=== PATIENT | female | born 1935 | race Caucasian/White ===

== ENCOUNTER 2017-07-13 22:20 | Inpatient (IN) | payer MEDICARE, OTHER ==
[~2017-07-13] VITALS: Ht 162.6 cm; Wt 64.3 kg
[2017-07-13] MEDS ORDERED: SODIUM CHLOR 0.9% 1000 ML INJ 1,000 ML IV ONE (22:30)
[2017-07-13 22:37] VITALS: BP 140/72; PULSE 79; RESP 21; TEMP 99.4; O2SAT 96
--- NOTE | 2017-07-13 22:39 | PD ---
HPI Chief Complaint: altered mental status Time Seen by Provider: 22:25 Travel History International Travel<30 days: No Contact w/Intl Traveler<30days: No Traveled to known affect area: No History of Present Illness HPI The patient is a 82-year-old female who presents to the emergency department via EMS from a [facility] for increasing altered mental status and lethargy. The patient apparently was diagnosed with influenza earlier in the week and was placed on Tamiflu. The patient then had an x-ray which revealed pneumonia. The patient was noted to have a change in mental status with increasing lethargy and generalized weakness. The patient was also noted to have poor nutritional intake. Upon arrival the patient will respond to her name but does not answer questions, she is a poor historian. No further information is obtainable from the patient. According to EMS the family was in route and the patient was a DNR. EMS states the patient's oxygen saturation on room air was 90%. The patient came up to 95% on 4 L via nasal cannula. PFS Past Medical History Narrative Medical Alzheimer's disease, osteoporosis, retinal detachment, hypertension, depression , hyperlipidemia, GERD Past Surgical History Surgical History: Unable to Obtain Social History Tobacco Use: No Allergies-Medications (Allergen,Severity, Reaction): Coded Allergies: bee venom protein (honey bee) (Verified Allergy, Unknown, 07/13/17) codeine (Verified Allergy, Unknown, 07/13/17) Review of Systems ROS Limitations: Clinical Condition, Altered Mental Status Except as stated in HPI: all other systems reviewed are Neg Neurologic: Positive: Change in Mentation Physical Exam Narrative GENERAL: Awake, eyes alert, somewhat lethargic 82-year-old female who responds to her name but does not answer questions. SKIN: Focused skin assessment warm/dry. HEAD: Atraumatic. Normocephalic. EYES: Pupils equal and round. 3 mm bilateral and reactive. ENT: No nasal bleeding or discharge. Dry mucous membranes. NECK: Trachea midline. No JVD. CARDIOVASCULAR: Regular rate and rhythm. No murmur appreciated. Heart rate in the 80s. RESPIRATORY: Tachypnea, diminished breath sounds in the right base. GASTROINTESTINAL: Abdomen soft, non-tender, nondistended. Well-healed scar right lower quadrant. MUSCULOSKELETAL: No obvious deformities. No clubbing. No cyanosis. No edema. NEUROLOGICAL: Awake, alert, lethargic. Moves extremities. Back: Stage II one to 2 sacral decubitus ulcers noted. PSYCHIATRIC: Appears confused. Data Data Last Documented VS Vital Signs Date Time Temp Pulse Resp B/P (MAP) Pulse Ox O2 Delivery O2 Flow Rate FiO2 07/13/17 22:41 99.4 21 96 Nasal Cannula 4.00 07/13/17 22:37 79 140/72 (94) Orders Orders Electrocardiogram (07/13/17 22:27) Complete Blood Count With Diff (07/13/17 22:27) Comprehensive Metabolic Panel (07/13/17 22:27) Creatine Kinase (Cpk) (07/13/17 22:27) Prothrombin Time / Inr (Pt) (07/13/17 22:27) Act Partial Throm Time (Ptt) (07/13/17 22:27) Troponin I (07/13/17 22:27) Thyroid Stimulating Hormone (07/13/17 22:27) Urinalysis - C+S If Indicated (07/13/17 22:27) Lactic Acid Sepsis Protocol (07/13/17 22:27) Blood Culture (07/13/17 22:27) Chest, Single Ap (07/13/17 22:27) Blood Glucose (07/13/17 22:27) Ecg Monitoring (07/13/17 22:27) Iv Access Insert/Monitor (07/13/17 22:27) Oximetry (07/13/17 22:27) Sodium Chlor 0.9% 1000 Ml Inj (Ns 1000 M (07/13/17 22:30) Cefepime Inj (Maxipime Inj) (07/13/17 23:15) Azithromycin Inj (Zithromax Inj) (07/13/17 23:15) Potassium, Serum (K) (07/14/17 02:59) Insulin Human Regular Inj (Novolin R Inj (07/14/17 00:15) Dextrose 50% In Juan José (Vial) Inj (D50w (Vi (07/14/17 00:00) Sodium Bicarbonate 8.4% Inj (Sodium Bica (07/14/17 00:00) Sodium Chlor 0.9% 1000 Ml Inj (Ns 1000 M (07/14/17 00:00) Admit Order (Ed Use Only) (07/14/17 00:20) Labs Laboratory Tests Test 07/13/17 22:25 07/13/17 22:30 White Blood Count 26.3 TH/MM3 Red Blood Count 4.48 MIL/MM3 Hemoglobin 13.7 GM/DL Hematocrit 39.5 % Mean Corpuscular Volume 88.1 FL Mean Corpuscular Hemoglobin 30.5 PG Mean Corpuscular Hemoglobin Concent 34.6 % Red Cell Distribution Width 15.0 % Platelet Count 445 TH/MM3 Mean Platelet Volume 9.0 FL Neutrophils (%) (Auto) 91.9 % Lymphocytes (%) (Auto) 4.5 % Monocytes (%) (Auto) 3.2 % Eosinophils (%) (Auto) 0.0 % Basophils (%) (Auto) 0.4 % Neutrophils # (Auto) 24.1 TH/MM3 Lymphocytes # (Auto) 1.2 TH/MM3 Monocytes # (Auto) 0.8 TH/MM3 Eosinophils # (Auto) 0.0 TH/MM3 Basophils # (Auto) 0.1 TH/MM3 CBC Comment AUTO DIFF Differential Total Cells Counted 100 Neutrophils % (Manual) 87 % Band Neutrophils % 5 % Lymphocytes % 3 % Monocytes % 4 % Neutrophils # (Manual) 24.5 TH/MM3 Metamyelocytes 1 % Differential Comment FINAL DIFF MANUAL Toxic Granulation 1+ Toxic Vacuolation PRESENT Platelet Estimate HIGH Platelet Morphology Comment NORMAL Austin Cells 1+ Prothrombin Time 12.0 SEC Prothromb Time International Ratio 1.2 RATIO Activated Partial Thromboplast Time 28.6 SEC Blood Urea Nitrogen 202 MG/DL Creatinine 15.08 MG/DL Random Glucose 167 MG/DL Total Protein 8.7 GM/DL Albumin 2.6 GM/DL Calcium Level 10.1 MG/DL Alkaline Phosphatase 105 U/L Aspartate Amino Transf (AST/SGOT) 22 U/L Alanine Aminotransferase (ALT/SGPT) 12 U/L Total Bilirubin 1.7 MG/DL Sodium Level 134 MEQ/L Potassium Level 6.6 MEQ/L Chloride Level 93 MEQ/L Carbon Dioxide Level 11.5 MEQ/L Anion Gap 30 MEQ/L Estimat Glomerular Filtration Rate 2 ML/MIN Total Creatine Kinase 48 U/L Troponin I LESS THAN 0.02 NG/ML Thyroid Stimulating Hormone 3rd Gen 0.145 uIU/ML Lactic Acid Level 1.0 mmol/L MDM Medical Decision Making Medical Screen Exam Complete: Yes Emergency Medical Condition: Yes Medical Record Reviewed: Yes Interpretation(s) EKG reveals normal sinus rhythm with a rate of 78. Inverted T-wave noted in lead 3. Last Impressions Chest X-Ray 07/13/172226 Signed Impressions: Service Date/Time: Thursday, July 13, 2017 22:41 - CONCLUSION: 1. Mild basilar airspace disease. Differential diagnosis includes mild bronchopneumonia in patient with fever. Walter Yanez MD Laboratory Tests Test 07/13/17 22:25 07/13/17 22:30 White Blood Count 26.3 TH/MM3 Red Blood Count 4.48 MIL/MM3 Hemoglobin 13.7 GM/DL Hematocrit 39.5 % Mean Corpuscular Volume 88.1 FL Mean Corpuscular Hemoglobin 30.5 PG Mean Corpuscular Hemoglobin Concent 34.6 % Red Cell Distribution Width 15.0 % Platelet Count 445 TH/MM3 Mean Platelet Volume 9.0 FL Neutrophils (%) (Auto) 91.9 % Lymphocytes (%) (Auto) 4.5 % Monocytes (%) (Auto) 3.2 % Eosinophils (%) (Auto) 0.0 % Basophils (%) (Auto) 0.4 % Neutrophils # (Auto) 24.1 TH/MM3 Lymphocytes # (Auto) 1.2 TH/MM3 Monocytes # (Auto) 0.8 TH/MM3 Eosinophils # (Auto) 0.0 TH/MM3 Basophils # (Auto) 0.1 TH/MM3 CBC Comment AUTO DIFF Differential Total Cells Counted 100 Neutrophils % (Manual) 87 % Band Neutrophils % 5 % Lymphocytes % 3 % Monocytes % 4 % Neutrophils # (Manual) 24.5 TH/MM3 Metamyelocytes 1 % Differential Comment FINAL DIFF MANUAL Toxic Granulation 1+ Toxic Vacuolation PRESENT Platelet Estimate HIGH Platelet Morphology Comment NORMAL Austin Cells 1+ Prothrombin Time 12.0 SEC Prothromb Time International Ratio 1.2 RATIO Activated Partial Thromboplast Time 28.6 SEC Blood Urea Nitrogen 202 MG/DL Creatinine 15.08 MG/DL Random Glucose 167 MG/DL Total Protein 8.7 GM/DL Albumin 2.6 GM/DL Calcium Level 10.1 MG/DL Alkaline Phosphatase 105 U/L Aspartate Amino Transf (AST/SGOT) 22 U/L Alanine Aminotransferase (ALT/SGPT) 12 U/L Total Bilirubin 1.7 MG/DL Sodium Level 134 MEQ/L Potassium Level 6.6 MEQ/L Chloride Level 93 MEQ/L Carbon Dioxide Level 11.5 MEQ/L Anion Gap 30 MEQ/L Estimat Glomerular Filtration Rate 2 ML/MIN Total Creatine Kinase 48 U/L Troponin I LESS THAN 0.02 NG/ML Thyroid Stimulating Hormone 3rd Gen 0.145 uIU/ML Lactic Acid Level 1.0 mmol/L Differential Diagnosis Differential diagnosis includes influenza, pneumonia, sepsis, and the life care , dehydration, acute renal failure, multisystem organ dysfunction. Narrative Course IV was established, labs are drawn and sent, and the patient was placed on cardiac telemetry monitoring and continuous pulse oximetry monitoring. Chest x- ray was obtained. UA was sent to lab. The patient was administered 1 L of IV fluids. Labs from the [facility] reveals a paced and tested positive for influenza A Sodium 139, potassium 4.1, chloride 101, CO2 22, glucose 60, BUN 81, crit at 2.42, calcium 8.82, magnesium 2.5 W CBC 17.5, hemoglobin 11.6, hematocrit 35.7, platelet count 355 Chest x-ray reveals bronchopneumonia. The patient was covered for healthcare acquired pneumonia with cefepime and Zithromax. The patient was also noted to be in acute renal failure with a credit greater than 15 and a potassium 6.6. The patient was given insulin, D50, IV fluids, and a call was placed the launderer hand. I discussed patient with Dr. Sahu who agrees with admission. I also had a discussion with the daughter stating the patient was critically ill, she does note the patient is a DNR, does not want intubation or compressions, she is comfortable with medication administration for the pneumonia. I did advise the family to call family members as the patient is critically ill. Critical Care Narrative Aggregate critical care time was 40 minutes. Time to perform other separately billable procedures was not included in the critical care time. My time did not include minutes spent treating any other patients simultaneously or on activities that did not directly contribute to the patient's treatment. The services I provided to this patient were to treat and/or prevent clinically significant deterioration that could result in: Arrhythmia, nontoxic, hypoxia, aspiration, . I provided critical care services requiring my management, as noted below: Chart data review, documentation time, medication orders and management, vital sign assessments/reviewing monitor data, ordering and reviewing lab tests, ordering and interpreting/reviewing x-rays and diagnostic studies, care of the patient and discussion of the patient with the admitting physicians. Sepsis Criteria SIRS Criteria (2 or more): RR > 20 or PaCO2 < 32, WBC > 39413, < 4000 or > 10 % bands Sepsis Criteria (SIRS+source): Infect source susp/known Severe Sepsis (+one): Acute Oliguria/Renal Failure Criteria Outcome: Meets severe sepsis criteria Physician Communication Physician Communication The on-call medical service was paged for admission. I discussed the patient with Dr. Sahu who agrees with admission. Diagnosis Primary Impression: Sepsis Qualified Codes: A41.9 - Sepsis, unspecified organism Additional Impressions: Influenza A Pneumonia Qualified Codes: J18.9 - Pneumonia, unspecified organism Acute renal failure Qualified Codes: N17.9 - Acute kidney failure, unspecified Hyperkalemia Admitting Information Admitting Physician Requests: Admit Condition: Critical Momo Cheek MD Jul 13, 2017 22:39
[2017-07-13 22:41] VITALS: RESP 21; TEMP 99.4; O2SAT 96
[2017-07-13 22:45] LABS: AUTOMATED NEUTROPHIL # 24.1 TH/MM3 (1.8-7.7); BASOPHIL # 0.1 TH/MM3 (0-0.2); BASOPHIL % 0.4 % (0.0-2.0); HEMATOCRIT 39.5 % (35.0-46.0); HEMOGLOBIN 13.7 GM/DL (11.6-15.3); LYMPH % 4.5 % (9.0-44.0); LYMPHOCYTE # 1.2 TH/MM3 (1.0-4.8); MEAN CELL VOLUME 88.1 FL (80.0-100.0); MEAN CORPUSCULAR HEMOGLOBIN 30.5 PG (27.0-34.0); MEAN CORPUSCULAR HGB CONC 34.6 % (32.0-36.0); MONO % 3.2 % (0.0-8.0); MONOCYTE # 0.8 TH/MM3 (0-0.9); NEUT % 91.9 % (16.0-70.0); PLATELET COUNT 445 TH/MM3 (150-450); RED BLOOD COUNT 4.48 MIL/MM3 (4.00-5.30); WHITE BLOOD COUNT 26.3 TH/MM3 (4.0-11.0)
[2017-07-13 22:55] LABS: INTERNATIONAL NORMALIZED RATIO 1.2 RATIO
--- NOTE | 2017-07-13 23:02 | RADRPT ---
EXAM DATE/TIME: 07/13/2017 22:41 [facility] COMPARISON: No previous studies available for comparison. INDICATIONS : Fever. Confusion. MEDICAL HISTORY : Unobtainable. SURGICAL HISTORY : Unobtainable. ENCOUNTER: Initial ACUITY: 1 week PAIN SCORE: Non-responsive. LOCATION: Bilateral chest FINDINGS: A single view of the chest demonstrates mild basilar airspace disease in the lungs. No effusion. No p neumothorax. Tortuous aorta. Mild scoliosis. Previous left shoulder joint replacement. CONCLUSION: 1. Mild basilar airspace disease. Differential diagnosis includes mild bronchopneumonia in patient wi th fever. Walter Yanez MD on July 13, 2017 at 22:57 Board Certified Radiologist. This report was verified electronically.
[2017-07-13] MEDS ORDERED: CEFEPIME INJ 2,000 MG in SODIUM CHLORIDE 0.9% INJ 100 ML IV ONE (23:15)
[2017-07-13] MEDS ORDERED: AZITHROMYCIN INJ 500 MG in SODIUM CHLOR 0.9% 250 ML INJ 250 ML IV ONE (23:15)
[2017-07-13 23:20] LABS: BANDS 5 % (0-6); LYMPHOCYTES 3 % (9-44); METAMYELOCYTES 1 % (0-1); MONOCYTES 4 % (0-8); NEUTROPHIL # MANUAL DIFF 24.5 TH/MM3 (1.8-7.7); POLYS (SEG NEUTROPHILS) 87 % (16-70)
[2017-07-13 23:21] LABS: TOXIC GRANULATION 1+ (NORMAL); TOXIC VACUOLATION PRESENT (NONE SEEN)
[2017-07-13 23:22] LABS: BURR CELLS 1+ (NORMAL)
[2017-07-13 23:49] LABS: ALBUMIN 2.6 GM/DL (3.4-5.0); ALKALINE PHOSPHATASE 105 U/L (45-117); ALT (GPT) 12 U/L (10-53); AST (GOT) 22 U/L (15-37); BICARBONATE 11.5 MEQ/L (21.0-32.0); BLOOD UREA NITROGEN 202 MG/DL (7-18); CALCIUM 10.1 MG/DL (8.5-10.1); CHLORIDE 93 MEQ/L (98-107); GLOMERULAR FILTRATION RATE 2 ML/MIN (>89); GLUCOSE,RANDOM 167 MG/DL (74-106); SODIUM (NA) 134 MEQ/L (136-145); TOTAL BILIRUBIN ADULT 1.7 MG/DL (0.2-1.0); TOTAL PROTEIN 8.7 GM/DL (6.4-8.2); TROPONIN I LESS THAN 0.02 NG/ML (0.02-0.05)
[2017-07-13 23:58] LABS: CREATININE 15.08 MG/DL (0.50-1.00)
[2017-07-14] VITALS (20 sets, daily range): BP systolic 124; BP diastolic 56; PULSE 93–127; RESP 24; TEMP 98.2; O2SAT 82–98
[2017-07-14] MEDS ORDERED: DEXTROSE 50% IN WATER 50 ML VIAL(D50) IV PUSH ONE
[2017-07-14] MEDS ORDERED: SODIUM BICARBONATE 8.4% SOLN 50 MEQ/50 ML VIAL SLOW IVP ONE
[2017-07-14] MEDS ORDERED: INSULIN HUMAN REGULAR 1,000 UNITS/10 ML VIAL IV PUSH ONE (00:15)
[2017-07-14] MEDS ORDERED: SODIUM CHLOR 0.9% 1000 ML INJ 100 ML IV ONE (00:27)
[2017-07-14] MEDS ORDERED: SODIUM CHLOR 0.9% 1000 ML INJ 1,000 ML IV ONE ×3 (00:27)
[2017-07-14] MEDS ORDERED: CHLORHEXIDINE GLUCONATE 2 % 1 PACK (2 CLOTHS) TOP PRN (00:30)
[2017-07-14] MEDS ORDERED: ONDANSETRON HCL 4 MG/2 ML VIAL IV PUSH PRN (00:30)
[2017-07-14] MEDS ORDERED: SODIUM BICARBONATE 8.4% SOLN 50 MEQ/50 ML VIAL IV PUSH ONE (00:30)
[2017-07-14] MEDS ORDERED: SENNOSIDES 8.6 MG TAB PO PRN (00:30)
[2017-07-14] MEDS ORDERED: ACETAMINOPHEN 325 MG TAB PO PRN (00:30)
[2017-07-14] MEDS ORDERED: MISCELLANEOUS NURSING INFORMATION XX SCH (00:30)
[2017-07-14] MEDS ORDERED: LACTULOSE SYRUP 20 GM/30 ML CUP PO PRN (00:30)
[2017-07-14] MEDS ORDERED: RESP: ALBUTEROL 2.5 MG/IPRATROPIUM 0.5 MG NEB (PRN) INH (00:30)
[2017-07-14] MEDS ORDERED: MAGNESIUM HYDROXIDE SUSP 30 ML CUP PO PRN (00:30)
[2017-07-14] MEDS ORDERED: BISACODYL 10 MG SUPP RECTAL PRN (00:30)
[2017-07-14] MEDS ORDERED: SODIUM CHLORIDE 0.9% FLUSH 10 ML FLUSH IV FLUSH PRN ×2 (00:30)
[2017-07-14] MEDS: CEFEPIME INJ 2,000 MG in SODIUM CHLORIDE 0.9% INJ 100 ML IV SCH ×2 (01:00→11:16)
[2017-07-14] MEDS ORDERED: METO25TA3 PO (01:06)
[2017-07-14] MEDS ORDERED: ARIC23TA PO (01:06)
[2017-07-14] MEDS ORDERED: MIRA25TA PO (01:06)
[2017-07-14] MEDS ORDERED: LOSA100T PO (01:06)
[2017-07-14] MEDS ORDERED: CYMB60CA PO (01:06)
[2017-07-14] MEDS ORDERED: NAME10TA PO (01:06)
[2017-07-14] MEDS ORDERED: MELA5 PO (01:06)
[2017-07-14] MEDS ORDERED: GLUC100013 (01:06)
[2017-07-14] MEDS ORDERED: PANT40TA3 PO (01:06)
[2017-07-14] MEDS ORDERED: CHOL1CAP8 PO (01:06)
[2017-07-14] MEDS ORDERED: REME15TA PO (01:06)
[2017-07-14] MEDS ORDERED: VITA100T65 PO (01:06)
[2017-07-14] MEDS ORDERED: GEMF600T PO (01:06)
[2017-07-14] MEDS ORDERED: RIVA3CAP (01:06)
[2017-07-14] MEDS ORDERED: ASPI-516 CHEW (01:06)
[2017-07-14] MEDS ORDERED: NIAC500T5 PO (01:06)
[2017-07-14] MEDS: RESP: ALBUTEROL 2.5 MG/IPRATROPIUM 0.5 MG NEB (SCH) INH ×5 (01:27→19:52)
[2017-07-14] MEDS: SODIUM BICARBONATE 8.4% INJ 150 MEQ in WATER STERILE FOR INJ 850 ML IV SCH ×4 (02:22→20:36)
[2017-07-14] MEDS: LINEZOLID 600 MG PREMIX 300 ML IV SCH ×2 (03:09→16:30)
[2017-07-14] MEDS: HEPARIN SODIUM - SQ 10,000 UNITS/ML VIAL SQ SCH ×2 (03:18→16:30)
[2017-07-14] MEDS: CHLORHEXIDINE GLUCONATE 2 % 1 PACK (2 CLOTHS) TOP SCH (03:18)
--- NOTE | 2017-07-14 03:33 | HHI.HP ---
HPI Service Critical Care Medicine Primary Care Physician Shimon Lopes MD Admission Diagnosis severe sepsis, acute renal failure, pneumonia, influenza a, hyperkal Diagnosis: Travel History International Travel<30 Days: No Contact w/Intl Traveler <30 Da: No Traveled to Known Affected Are: No History of Present Illness 82-year-old pleasantly demented female presents to the emergency department from a [facility] for increasing altered mental status and lethargy. The patient apparently was diagnosed with influenza earlier in the week and was placed on Tamiflu. She had an x-ray which revealed pneumonia. The patient was noted to have a change in mental status with increasing lethargy and generalized weakness. She was also noted to have poor nutritional intake. During my assessment the patient is extremely lethargic, only arousable and most of the history is obtained from the chart review and the patient's family. Review of Systems ROS Unobtainable, patient is lethargic with baseline dementia Past Family Social History Allergies: Coded Allergies: bee venom protein (honey bee) (Verified Allergy, Unknown, 07/13/17) codeine (Verified Allergy, Unknown, 07/13/17) Past Medical History Alzheimer's disease, Osteoporosis Hypertension Depression Dyslipidemia GERD Retinal detachment Past Surgical History Unobtainable Reported Medications Reported Meds & Active Scripts Active Reported Rivastigmine 3 Mg Cap 3 Mg BIDPC Pantoprazole (Pantoprazole Sodium) 40 Mg Tab 40 Mg PO DAILY Namenda (Memantine) 10 Mg Tab 10 Mg PO BID Metoprolol Tartrate 25 Mg Tab 25 Mg PO BID Gemfibrozil 600 Mg Tab 600 Mg PO BIDAC Take 30 minutes prior to breakfast and dinner. Vitamin E 100 Unit Tab 100 Units PO DAILY Vitamin D3 (Cholecalciferol) 400 Unit Cap 400 Units PO DAILY Remeron (Mirtazapine) 15 Mg Tab 15 Mg PO HS Niacin 500 Mg Tab 500 Mg PO DAILY Myrbetriq (Mirabegron) 25 Mg Tab 25 Mg PO DAILY Melatonin 5 Mg Tab 5 Mg PO HS Losartan (Losartan Potassium) 100 Mg Tab 100 Mg PO DAILY Glucosamine (Glucosamine Sulfate) 1,000 Mg Cap 1,[address] (Duloxetine HCl) 60 Mg Capdr 60 Mg PO DAILY Aspirin 81 Mg Chew 81 Mg CHEW DAILY Aricept (Donepezil) 23 Mg Tab 10 Mg PO HS Do not split, crushed or chewed. Active Ordered Medications Current Medications Medications (Trade) Dose Ordered Sig/Beverly Route PRN Reason Start Time Stop Time Status Last Admin Dose Admin Sodium Bicarbonate 150 meq/Sterile Water 1,000 ml @ 150 mls/hr Q6H40M IV 07/14/17 00:30 07/14/17 02:22 Sodium Chloride (NS Flush) 2 ml UNSCH PRN IV FLUSH FLUSH AFTER USING IV ACCESS 07/14/17 00:30 Acetaminophen (Tylenol) 650 mg Q6H PRN PO PAIN 1-5 AND/OR FEVER >101F 07/14/17 00:30 Morphine Sulfate (Morphine Inj) 2 mg Q2H PRN IV PUSH PAIN SCLAE 6-1; AIR HUNGER 07/14/17 01:15 Famotidine (Pepcid Inj) 20 mg Q12HR IV PUSH 07/14/17 09:00 Ondansetron HCl (Zofran Inj) 4 mg Q6H PRN IV PUSH NAUSEA OR VOMITING 07/14/17 00:30 Albuterol/ Ipratropium (Duoneb Neb) 1 ampule Q6HR NEB INH 07/14/17 00:30 07/14/17 03:11 Albuterol/ Ipratropium (Duoneb Neb) 1 ampule Q2HR NEB PRN INH WHEEZING 07/14/17 00:30 Heparin Sodium (Porcine) (Heparin Inj) 5,000 units Q12H SQ 07/14/17 02:00 07/14/17 03:18 Miscellaneous Information 1 Q361D XX 07/14/17 00:30 Chlorhexidine Gluconate (Chlorhexidine 2% Cloth) 3 pack Taper DAILY@04 TOP 07/14/17 04:00 07/10/18 03:59 07/14/17 03:18 Chlorhexidine Gluconate (Chlorhexidine 2% Cloth) 3 pack UNSCH PRN TOP HYGIENIC CARE 07/14/17 00:30 Senna/Docusate Sodium (Anitha-Colace) 1 tab BID PO 07/14/17 09:00 Magnesium Hydroxide (Milk Of Magnesia Liq) 30 ml Q12H PRN PO Mild constipation 07/14/17 00:30 Sennosides (Senokot) 17.2 mg Q12H PRN PO Moderate constipation 07/14/17 00:30 Bisacodyl (Dulcolax Supp) 10 mg DAILY PRN RECTAL SEVERE CONSITIPATION 07/14/17 00:30 Lactulose (Lactulose Liq) 30 ml DAILY PRN PO SEVERE CONSITIPATION 07/14/17 00:30 Sodium Chloride (NS Flush) 2 ml BID IV FLUSH 07/14/17 09:00 Cefepime HCl 2000 mg/Sodium Chloride 100 ml @ 200 mls/hr Q8H IV 07/14/17 01:00 Azithromycin 500 mg/Sodium Chloride 250 ml @ 250 mls/hr Q24H IV 07/14/17 23:00 Linezolid 300 ml @ 300 mls/hr Q12H IV 07/14/17 02:00 07/14/17 03:09 Oseltamivir Phosphate (Tamiflu) 75 mg BID PO 07/14/17 09:00 07/19/17 08:59 Family History Unobtainable Social History Negative for tobacco, alcohol, or illicit drug abuse Physical Exam Vital Signs Vital Signs Date Time Temp Pulse Resp B/P (MAP) Pulse Ox O2 Delivery O2 Flow Rate FiO2 07/14/17 03:11 98 Nasal Cannula 2.00 07/14/17 01:33 96 Nasal Cannula 4.00 07/13/17 22:41 99.4 21 96 Nasal Cannula 4.00 07/13/17 22:37 99.4 79 21 140/72 (94) 96 Physical Exam GENERAL: Awake, extremely lethargic 82-year-old female who responds to her name but does not answer questions. SKIN: Focused skin assessment warm/dry. HEAD: Atraumatic. Normocephalic. EYES: Pupils equal and round. 3 mm bilateral and reactive. ENT: No nasal bleeding or discharge. Dry mucous membranes. NECK: Trachea midline. No JVD. CARDIOVASCULAR: Regular rate and rhythm. No murmur appreciated. Heart rate in the 80s. RESPIRATORY: Tachypnea, diminished breath sounds in the right base. GASTROINTESTINAL: Abdomen soft, non-tender, nondistended. Well-healed scar right lower quadrant. MUSCULOSKELETAL: No obvious deformities. No clubbing. No cyanosis. No edema. NEUROLOGICAL: Awake, alert, lethargic. Moves extremities. Back: Stage II one to 2 sacral decubitus ulcers noted. Laboratory Laboratory Tests Test 07/13/17 22:25 07/13/17 22:30 07/14/17 02:30 White Blood Count 26.3 Red Blood Count 4.48 Hemoglobin 13.7 Hematocrit 39.5 Mean Corpuscular Volume 88.1 Mean Corpuscular Hemoglobin 30.5 Mean Corpuscular Hemoglobin Concent 34.6 Red Cell Distribution Width 15.0 Platelet Count 445 Mean Platelet Volume 9.0 Neutrophils (%) (Auto) 91.9 Lymphocytes (%) (Auto) 4.5 Monocytes (%) (Auto) 3.2 Eosinophils (%) (Auto) 0.0 Basophils (%) (Auto) 0.4 Neutrophils # (Auto) 24.1 Lymphocytes # (Auto) 1.2 Monocytes # (Auto) 0.8 Eosinophils # (Auto) 0.0 Basophils # (Auto) 0.1 CBC Comment AUTO DIFF Differential Total Cells Counted 100 Neutrophils % (Manual) 87 Band Neutrophils % 5 Lymphocytes % 3 Monocytes % 4 Neutrophils # (Manual) 24.5 Metamyelocytes 1 Differential Comment FINAL DIFF MANUAL Toxic Granulation 1+ Toxic Vacuolation PRESENT Platelet Estimate HIGH Platelet Morphology Comment NORMAL Dandy Cells 1+ Prothrombin Time 12.0 Prothromb Time International Ratio 1.2 Activated Partial Thromboplast Time 28.6 Blood Urea Nitrogen 202 Creatinine 15.08 Random Glucose 167 Total Protein 8.7 Albumin 2.6 Calcium Level 10.1 Alkaline Phosphatase 105 Aspartate Amino Transf (AST/SGOT) 22 Alanine Aminotransferase (ALT/SGPT) 12 Total Bilirubin 1.7 Sodium Level 134 Potassium Level 6.6 Chloride Level 93 Carbon Dioxide Level 11.5 Anion Gap 30 Estimat Glomerular Filtration Rate 2 Total Creatine Kinase 48 Troponin I LESS THAN 0.02 Thyroid Stimulating Hormone 3rd Gen 0.145 Lactic Acid Level 1.0 Date/Time Source Procedure Growth Status 07/13/17 22:30 Blood Peripheral Aerobic Blood Culture Pending Received 07/13/17 22:30 Blood Peripheral Anaerobic Blood Culture Pending Received Result Diagram: 07/13/17222407/13/172224 Imaging Last 24 hours Impressions Chest X-Ray 07/13/172226 Signed Impressions: Service Date/Time: Thursday, July 13, 2017 22:41 - CONCLUSION: 1. Mild basilar airspace disease. Differential diagnosis includes mild bronchopneumonia in patient with fever. Walter Yanez MD Septic Shock Reassessment Septic shock perfusion: reassessment completed Caprini VTE Risk Assessment Caprini VTE Risk Assessment: Mod/High Risk (score >= 2) Caprini Risk Assessment Model Point Value = 1 Point Value = 2 Point Value = 3 Point Value = 5 Age 41-60 Minor surgery BMI > 25 kg/m2 Swollen legs Varicose veins or History of unexplained or recurrent spontaneous Oral contraceptives or hormone replacement Sepsis (< 1 month) Serious lung disease, including pneumonia (< 1 month) Abnormal pulmonary function Acute myocardial infarction Congestive heart failure (< 1 month) History of inflammatory bowel disease Medical patient at bed rest Age 61-74 Arthroscopic surgery Major open surgery (> 45 min) Laparoscopic surgery (> 45 min) Malignancy Confined to bed (> 72 hours) Immobilizing plaster cast Central venous access Age >= 75 History of VTE Family history of VTE Factor V Leiden Prothrombin [id number] Lupus anticoagulant Anticardiolipin antibodies Elevated serum homocysteine Heparin-induced thrombocytopenia Other congenital or acquired thrombophilia Stroke (< 1 month) Elective arthroplasty Hip, pelvis, or leg fracture Acute spinal cord injury (< 1 month) Prophylaxis Regimen Total Risk Factor Score Risk Level Prophylaxis Regimen 0-1 Low Early ambulation 2 Moderate Order ONE of the following: *Sequential Compression Device (SCD) *Heparin 5000 units SQ BID 3-4 Higher Order ONE of the following medications: *Heparin 5000 units SQ TID *Enoxaparin/Lovenox 40 mg SQ daily (WT < 150 kg, CrCl > 30 mL/min) *Enoxaparin/Lovenox 30 mg SQ daily (WT < 150 kg, CrCl > 10-29 mL/min) *Enoxaparin/Lovenox 30 mg SQ BID (WT < 150 kg, CrCl > 30 mL/min) AND/OR *Sequential Compression Device (SCD) 5 or more Highest Order ONE of the following medications: *Heparin 5000 units SQ TID (Preferred with Epidurals) *Enoxaparin/Lovenox 40 mg SQ daily (WT < 150 kg, CrCl > 30 mL/min) *Enoxaparin/Lovenox 30 mg SQ daily (WT < 150 kg, CrCl > 10-29 mL/min) *Enoxaparin/Lovenox 30 mg SQ BID (WT < 150 kg, CrCl > 30 mL/min) AND *Sequential Compression Device (SCD) Assessment and Plan Assessment and Plan Sepsis - Broad-spectrum antibiotics - Panculture - De-escalate antibiotics per sensitivity Pneumonia - Hospital-acquired/patient is a halfway resident - Diagnosed recently with flu - Continue Tamiflu - Cefepime, azithromycin, linezolid (severe acute kidney injury ) - DuoNeb scheduled and when necessary - O2 nasal cannula to keep sats above 92 Acute kidney injury with hyperkalemia - Severe dehydration - Discussed with patient's family, she would never want hemodialysis neither they do - Sodium bicarbonate drip - Monitor labs - Aggressive IV fluid hydration - Strict I's and O's Alzheimer's disease - Resume Aricept Namenda when okay to swallow Osteoporosis - Hold vitamin D and calcium until neurologically improved and safe to by mouth Hypertension - Hold metoprolol in the picture of sepsis Depression - Resume Cymbalta when by mouth Dyslipidemia - Resume atorvastatin GERD - IV Pepcid DVT GI prophylaxis - Teds SCDs - Subcutaneous heparin - Pepcid Critical Care: The total critical care time was 35 minutes. Time to perform other separately billable procedures was not included in the critical care time. Guillermo Sahu MD Jul 14, 2017 3:33 am
[2017-07-14 04:10] LABS: AUTOMATED NEUTROPHIL # 18.1 TH/MM3 (1.8-7.7); BASOPHIL % 0.2 % (0.0-2.0); HEMATOCRIT 32.7 % (35.0-46.0); HEMOGLOBIN 10.9 GM/DL (11.6-15.3); LYMPH % 6.9 % (9.0-44.0); LYMPHOCYTE # 1.4 TH/MM3 (1.0-4.8); MEAN CELL VOLUME 88.9 FL (80.0-100.0); MEAN CORPUSCULAR HEMOGLOBIN 29.7 PG (27.0-34.0); MEAN CORPUSCULAR HGB CONC 33.4 % (32.0-36.0); MEAN PLATELET VOLUME 8.3 FL (7.0-11.0); MONO % 3.1 % (0.0-8.0); MONOCYTE # 0.6 TH/MM3 (0-0.9); NEUT % 89.8 % (16.0-70.0); PLATELET COUNT 354 TH/MM3 (150-450); RED BLOOD COUNT 3.68 MIL/MM3 (4.00-5.30); WHITE BLOOD COUNT 20.2 TH/MM3 (4.0-11.0)
[2017-07-14 05:27] LABS: ALKALINE PHOSPHATASE 83 U/L (45-117); ALT (GPT) 9 U/L (10-53); AST (GOT) 16 U/L (15-37); BICARBONATE 14.6 MEQ/L (21.0-32.0); CALCIUM 8.4 MG/DL (8.5-10.1); CHLORIDE 102 MEQ/L (98-107); GLOMERULAR FILTRATION RATE 3 ML/MIN (>89); GLUCOSE,RANDOM 166 MG/DL (74-106); SODIUM (NA) 141 MEQ/L (136-145); TOTAL BILIRUBIN ADULT 1.4 MG/DL (0.2-1.0); TOTAL PROTEIN 6.8 GM/DL (6.4-8.2)
[2017-07-14 05:36] LABS: CREATININE 13.64 MG/DL (0.50-1.00)
[2017-07-14 05:56] LABS: BLOOD UREA NITROGEN 197 MG/DL (7-18); PHOSPHORUS 9.8 MG/DL (2.5-4.9)
--- NOTE | 2017-07-14 08:12 | EKG ---
Date Performed: 07/13/2017 Time Performed: 22:54:42 PTAGE: 82 years EKG: Baseline artifact present Sinus rhythm NORMAL ECG NO PREVIOUS TRACING DOCTOR: Nolan Reid Interpretating Date/Time 07/14/2017 08:11:57
[2017-07-14] MEDS: DOCUSATE SODIUM 50 MG/SENNA 8.6 MG TAB PO SCH ×2 (09:00→20:35)
[2017-07-14] MEDS ORDERED: OSELTAMIVIR PHOSPHATE 75 MG CAP PO SCH (09:00)
[2017-07-14] MEDS ORDERED: SODIUM CHLORIDE 0.9% FLUSH 10 ML FLUSH IV FLUSH SCH (09:00)
[2017-07-14] MEDS ORDERED: OSELTAMIVIR PHOSPHATE 30 MG CAP PO SCH ×2 (11:00→13:00)
[2017-07-14] MEDS: FAMOTIDINE 20 MG/2 ML VIAL IV PUSH SCH ×2 (11:19→20:36)
[2017-07-14] MEDS: SODIUM CHLORIDE 0.9% FLUSH 10 ML FLUSH IV FLUSH SCH ×2 (11:19→20:36)
[2017-07-14] MEDS: ASPIRIN 81 MG CHEW TAB CHEW SCH (11:19)
--- NOTE | 2017-07-14 19:20 | PD.WCN.NOT ---
Wound Consult Description: Wound consult ordered by for excoriated buttocks and coccyx Communicated with: Ryann Cruz 5th floor [facility], Recommendation: 1) Reposition patient every 2 hours for comfort and offloading 2) Perform routine incontinence care.Patting opens areas verse wiping or rubbing. 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 Shannon Haley [facility] Jul 14, 2017 19:20
[2017-07-14] MEDS ORDERED: AZITHROMYCIN INJ 500 MG in SODIUM CHLOR 0.9% 250 ML INJ 250 ML IV SCH (23:00)
[2017-07-14] MEDS: MORPHINE SULFATE 2 MG/ML INJ IV PUSH PRN (23:13)
[2017-07-15] VITALS (13 sets, daily range): BP systolic 136–170; BP diastolic 68–70; PULSE 99–110; RESP 22–30; TEMP 97.9–98.9; O2SAT 81–94
[2017-07-15] MEDS: CHLORHEXIDINE GLUCONATE 2 % 1 PACK (2 CLOTHS) TOP SCH (01:18)
[2017-07-15] MEDS: LINEZOLID 600 MG PREMIX 300 ML IV SCH ×2 (01:18→14:00)
[2017-07-15] MEDS: HEPARIN SODIUM - SQ 10,000 UNITS/ML VIAL SQ SCH ×2 (01:19→14:00)
[2017-07-15] MEDS: RESP: ALBUTEROL 2.5 MG/IPRATROPIUM 0.5 MG NEB (SCH) INH ×3 (02:51→15:26)
[2017-07-15] MEDS: SODIUM BICARBONATE 8.4% INJ 150 MEQ in WATER STERILE FOR INJ 850 ML IV SCH ×3 (03:24→16:30)
--- NOTE | 2017-07-15 04:40 | RADRPT ---
EXAM DATE/TIME: 07/15/2017 04:05 [facility] COMPARISON: CHEST SINGLE AP, July 13, 2017, 22:41. INDICATIONS : Evaluate for pneumonia- Shortness of breath MEDICAL HISTORY : Unknown SURGICAL HISTORY : Left shoulder replacement ENCOUNTER: Subsequent ACUITY: 3 days PAIN SCORE: 7/10 LOCATION: Bilateral chest FINDINGS: Left shoulder arthroplasty. Cardiomegaly. Tortuous aorta. Atelectatic changes are seen at the right l alejandro base and there is patchy airspace disease in the left lower lobe. CONCLUSION: Left lower lobe airspace disease. Jack Lopez MD on July 15, 2017 at 4:37 Board Certified Radiologist. This report was verified electronically.
[2017-07-15] MEDS: SODIUM CHLORIDE 0.9% FLUSH 10 ML FLUSH IV FLUSH SCH (07:53)
[2017-07-15] MEDS: ASPIRIN 81 MG CHEW TAB CHEW SCH (07:53)
[2017-07-15] MEDS: FAMOTIDINE 20 MG/2 ML VIAL IV PUSH SCH (07:53)
[2017-07-15] MEDS: MORPHINE SULFATE 2 MG/ML INJ IV PUSH PRN ×2 (07:53→16:30)
[2017-07-15] MEDS: DOCUSATE SODIUM 50 MG/SENNA 8.6 MG TAB PO SCH (07:54)
[2017-07-15] MEDS ORDERED: CEFEPIME 1000 MG/NS 100 ML IV SCH ×2 (11:00)
--- NOTE | 2017-07-15 18:29 | HHI.DS ---
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 The patient apparently was diagnosed with influenza earlier in the week and was placed on Tamiflu. She had an x-ray which revealed pneumonia. The patient was noted to have a change in mental status with increasing lethargy and generalized weakness. She was also noted to have poor nutritional intake. During my assessment the patient is extremely lethargic, only arousable and most of the history is obtained from the chart review and the patient's family. CBC/BMP: 07/14/17 0350 07/14/17 0350 Significant Findings Laboratory Tests Test 07/13/17 22:25 07/13/17 22:30 07/14/17 02:30 07/14/17 03:50 White Blood Count 26.3 TH/MM3 (4.0-11.0) 20.2 TH/MM3 (4.0-11.0) Neutrophils (%) (Auto) 91.9 % (16.0-70.0) 89.8 % (16.0-70.0) Lymphocytes (%) (Auto) 4.5 % (9.0-44.0) 6.9 % (9.0-44.0) Neutrophils # (Auto) 24.1 TH/MM3 (1.8-7.7) 18.1 TH/MM3 (1.8-7.7) Neutrophils % (Manual) 87 % (16-70) Lymphocytes % 3 % (9-44) Neutrophils # (Manual) 24.5 TH/MM3 (1.8-7.7) Toxic Granulation 1+ (NORMAL) Toxic Vacuolation PRESENT (NONE SEEN) Platelet Estimate HIGH (NORMAL) Dandy Cells 1+ (NORMAL) Prothrombin Time 12.0 SEC (9.8-11.6) Blood Urea Nitrogen 202 MG/DL (7-18) 197 MG/DL (7-18) Creatinine 15.08 MG/DL (0.50-1.00) 13.64 MG/DL (0.50-1.00) Random Glucose 167 MG/DL (74-106) 166 MG/DL (74-106) Total Protein 8.7 GM/DL (6.4-8.2) Albumin 2.6 GM/DL (3.4-5.0) 2.0 GM/DL (3.4-5.0) Total Bilirubin 1.7 MG/DL (0.2-1.0) 1.4 MG/DL (0.2-1.0) Sodium Level 134 MEQ/L (136-145) Potassium Level 6.6 MEQ/L (3.5-5.1) 5.5 MEQ/L (3.5-5.1) Chloride Level 93 MEQ/L (98-107) Carbon Dioxide Level 11.5 MEQ/L (21.0-32.0) 14.6 MEQ/L (21.0-32.0) Anion Gap 30 MEQ/L (5-15) 24 MEQ/L (5-15) Estimat Glomerular Filtration Rate 2 ML/MIN (>89) 3 ML/MIN (>89) Troponin I LESS THAN 0.02 NG/ML Thyroid Stimulating Hormone 3rd Gen 0.145 uIU/ML (0.358-3.740) Red Blood Count 3.68 MIL/MM3 (4.00-5.30) Hemoglobin 10.9 GM/DL (11.6-15.3) Hematocrit 32.7 % (35.0-46.0) Platelet Morphology Comment CLUMPED (NORMAL) Calcium Level 8.4 MG/DL (8.5-10.1) Phosphorus Level 9.8 MG/DL (2.5-4.9) Magnesium Level 3.0 MG/DL (1.5-2.5) Alanine Aminotransferase (ALT/SGPT) 9 U/L (10-53) Test 07/14/17 16:18 Hospital Course 82-year-old 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 The patient apparently was diagnosed with influenza earlier in the week and was placed on Tamiflu. She had an x-ray which revealed pneumonia. The patient was noted to have a change in mental status with increasing lethargy and generalized weakness. She was also noted to have poor nutritional intake. During my assessment the patient is extremely lethargic, only arousable and most of the history is obtained from the chart review and the patient's family. Patient's family decided to pursue hospice and transferred her to hospice care facility. patient transferred in stable but guarded condition. Pt Condition on Discharge: Deteriorating Discharge Disposition: Hospice/Med Facility Discharge Instructions DIET: Follow Instructions for: As Tolerated, No Restrictions Activities you can perform: Regular-No Restrictions Leoncio Acevedo MD Jul 15, 2017 18:29
[2017-07-16] MEDS ORDERED: FAMOTIDINE 20 MG/2 ML VIAL IV PUSH SCH (09:00)
== END 2017-07-15 16:49 | disposition hospice, inpatient (51) | DRG 871 ==
LOC: NEPE 22:20 → NEDA 07-14 00:22 → HIMN 07-14 02:00
PROVIDERS: ADMIT Internal Medicine Critical Care Medicine; ATTEND Internal Medicine Critical Care Medicine
DX: A41.9 Sepsis, unspecified organism (principal); J10.08 Influenza due to other identified influenza virus with other specified pneumonia; N17.9 Acute kidney failure, unspecified; L89.152 Pressure ulcer of sacral region, stage 2; J18.0 Bronchopneumonia, unspecified organism; E87.5 Hyperkalemia; E86.0 Dehydration; G30.9 Alzheimer's disease, unspecified; F02.80 Dementia in other diseases classified elsewhere, unspecified severity, without behavioral disturbance, psychotic disturbance, mood disturbance, and anxiety; R65.20 Severe sepsis without septic shock; M81.0 Age-related osteoporosis without current pathological fracture; I10 Essential (primary) hypertension; E78.5 Hyperlipidemia, unspecified; K21.9 Gastro-esophageal reflux disease without esophagitis; F32.9 Major depressive disorder, single episode, unspecified; Y95 Nosocomial condition; Z66 Do not resuscitate; Z51.5 Encounter for palliative care; Z88.5 Allergy status to narcotic agent; Z91.030 Bee allergy status
CPT/HCPCS: 71045; 80053; 82550; 82948; 83605; 83735; 84100; 84132; 84443; 84484; 85007; 85025; 85027; 85610; 85730; 87040; 87641; 93005; 94640; 94664; 96361; 96374; J0456; J0692; J1644; J1815; J2020; J2270; J7030; J7050